=== PATIENT | male | born 1985 | race Caucasian/White ===

== ENCOUNTER 2018-10-04 14:50 | Emergency (ER) | payer OTHER ==
[~2018-10-04] VITALS: Ht 180.3 cm; Wt 77.3 kg
[~2018-10-04 14:50] MED LIST: HYDR-762 PO; TRAM50TA2 PO
[2018-10-04 14:55] VITALS: Ht 180.3 cm; Wt 77.3 kg
[2018-10-04] MEDS ORDERED: FENTAnyl 50 MCG/ML VIAL IV ONE ×4 (16:00→20:00)
[2018-10-04] MEDS ORDERED: MIDAZOLAM 1 MG/ML 2 ML INJ ONE (18:46)
[2018-10-04] MEDS ORDERED: LIDOCAINE 1% (MPF) 5 ML VIAL ONE (18:48)
[2018-10-04] MEDS ORDERED: LIDOCAINE 1% (MDV) 20 ML INJ ONE (18:54)
[2018-10-04] MEDS ORDERED: MIDAZOLAM 1 MG/ML 2 ML INJ IV ONE ×2 (19:00→20:00)
[2018-10-04] MEDS ORDERED: KETOROLAC 30 MG INJ IV STA (19:34)
[2018-10-04] MEDS ORDERED: HYDROCODONE/APAP (5/325) TAB PO ONE (20:00)
[2018-10-04 22:52] VITALS: BP 120/81; PULSE 60; RESP 21
[2018-10-04] MEDS ORDERED: SOD CHLORIDE 0.9% 0 ML ONE (23:47)
[2018-10-04] MEDS ORDERED: IOHEXOL 300MG/ML 150 ML BTL ONE (23:47)
== END 2018-10-04 22:52 | disposition home or self-care (01) ==
LOC: E/R 14:50
DX: J93.83 Other pneumothorax (principal)
CPT/HCPCS: 32551; 71045; 71250; 75989; 80048; 84484; 85025; 93005; 96374; C1729; J1885; J2250; J3010; Z7502; Z7610; Q9967

== ENCOUNTER 2018-10-04 23:25 | Inpatient (IN) | payer OTHER ==
[~2018-10-04] VITALS: Ht 180.3 cm; Wt 67.0 kg
[2018-10-04] MEDS ORDERED: morphine 4 MG/ML VIAL IV STA (23:43)
[2018-10-04] MEDS ORDERED: SOD CHLORIDE 0.9% 100 ML ONE (23:50)
[2018-10-04] MEDS ORDERED: IOHEXOL 300MG/ML 150 ML BTL ONE (23:50)
[2018-10-05] VITALS (39 sets, daily range): BP systolic 104–130; BP diastolic 45–103; PULSE 43–60; RESP 10–21; Ht 180.3 cm; Wt 67.0 kg
[2018-10-05] MEDS ORDERED: KETAMINE (50 MG/ML) 10 ML VIAL IV STA (00:23)
[2018-10-05] MEDS ORDERED: ONDANSETRON 4 MG INJ IV STA (00:23)
[2018-10-05] MEDS ORDERED: LIDOCAINE 1%/EPI (MDV) 50 ML INJ INJ ONE (00:30)
[2018-10-05] MEDS ORDERED: ONDANSETRON 4 MG INJ IV PRN (01:00)
[2018-10-05] MEDS ORDERED: LIDOCAINE 1%/EPI 30 ML INJ INJ ONE (01:00)
[2018-10-05] MEDS ORDERED: ONDANSETRON 4 MG INJ IV ONE (01:51)
[2018-10-05] MEDS: ACETAMINOPHEN 325 MG TAB PO PRN ×2 (03:35→10:43)
[2018-10-05] MEDS: morphine 2 MG INJ IV PRN ×3 (04:59→13:16)
[2018-10-05] MEDS: METOCLOPRAMIDE 10 MG INJ IV PRN ×2 (04:59→13:17)
[2018-10-05] MEDS ORDERED: KETOROLAC 30 MG INJ IV STA (09:42)
[2018-10-05] MEDS ORDERED: ACETAMINOPHEN 325 MG TAB PO PRN (11:00)
[2018-10-05] MEDS ORDERED: HYDROmorphONE 1 MG/ML SYG IV PRN (14:00)
[2018-10-05] MEDS: METOCLOPRAMIDE 10 MG INJ IV SCH ×2 (17:10→23:00)
[2018-10-05] MEDS: KETOROLAC 30 MG INJ IV SCH ×3 (17:10→21:59)
[2018-10-05] MEDS: ONDANSETRON 4 MG INJ IV PRN (20:06)
[2018-10-05] MEDS: HYDROmorphONE 1 MG/ML SYG IV PRN (20:13)
[2018-10-06] VITALS (24 sets, daily range): BP systolic 95–127; BP diastolic 59–87; PULSE 41–64; RESP 10–20
[2018-10-06] MEDS: ONDANSETRON 4 MG INJ IV PRN ×3 (01:31→20:23)
[2018-10-06] MEDS: HYDROmorphONE 1 MG/ML SYG IV PRN ×5 (01:32→23:34)
[2018-10-06] MEDS: KETOROLAC 30 MG INJ IV SCH ×5 (02:04→20:24)
[2018-10-06] MEDS: METOCLOPRAMIDE 10 MG INJ IV SCH ×5 (05:00→23:33)
[2018-10-06] MEDS: NICOTINE (14 MG/24 HR) PATCH TRANSDERM SCH (08:44)
[2018-10-07] VITALS (22 sets, daily range): BP systolic 92–125; BP diastolic 63–95; PULSE 44–66; RESP 10–21
[2018-10-07] MEDS: ONDANSETRON 4 MG INJ IV PRN ×3 (03:45→20:11)
[2018-10-07] MEDS: KETOROLAC 30 MG INJ IV SCH ×2 (03:45→08:37)
[2018-10-07] MEDS: HYDROmorphONE 1 MG/ML SYG IV PRN ×5 (05:28→23:16)
[2018-10-07] MEDS: METOCLOPRAMIDE 10 MG INJ IV SCH ×4 (05:28→23:16)
[2018-10-07] MEDS: NICOTINE (14 MG/24 HR) PATCH TRANSDERM SCH (08:39)
[2018-10-08] VITALS (24 sets, daily range): BP systolic 97–138; BP diastolic 49–107; PULSE 44–86; RESP 9–22
[2018-10-08] MEDS: ONDANSETRON 4 MG INJ IV PRN ×5 (02:50→20:02)
[2018-10-08] MEDS: HYDROmorphONE 1 MG/ML SYG IV PRN ×5 (02:51→20:02)
[2018-10-08] MEDS: NICOTINE (14 MG/24 HR) PATCH TRANSDERM SCH (08:32)
[2018-10-09] VITALS: BP 114/74; PULSE 75; RESP 18
[2018-10-09] MEDS: ONDANSETRON 4 MG INJ IV PRN ×5 (00:17→23:33)
[2018-10-09] MEDS: HYDROmorphONE 1 MG/ML SYG IV PRN ×5 (00:18→23:38)
[2018-10-09 04:17] VITALS: BP 116/77; PULSE 79; RESP 18
[2018-10-09] MEDS ORDERED: HYDROmorphONE 0.5 MG/0.5 ML SYG IV ONE (06:58)
[2018-10-09 08:03] VITALS: BP 111/72; PULSE 71; RESP 20
[2018-10-09] MEDS: NICOTINE (14 MG/24 HR) PATCH TRANSDERM SCH (09:00)
[2018-10-09 11:20] VITALS: BP 120/65; PULSE 52; RESP 20
[2018-10-09 15:42] VITALS: BP 114/71; PULSE 66; RESP 20
[2018-10-09 19:51] VITALS: BP 112/72; PULSE 54; RESP 18
[2018-10-10] MEDS ORDERED: MAGNESIUM HYDROXIDE 30ML CUP PO PRN (00:30)
[2018-10-10] MEDS: ONDANSETRON 4 MG INJ IV PRN ×2 (04:11→08:54)
[2018-10-10] MEDS: HYDROmorphONE 1 MG/ML SYG IV PRN ×3 (04:11→12:37)
[2018-10-10 04:13] VITALS: BP 115/75; PULSE 59; RESP 18
[2018-10-10 07:29] VITALS: BP 121/72; PULSE 59; RESP 20
[2018-10-10] MEDS: NICOTINE (14 MG/24 HR) PATCH TRANSDERM SCH (08:46)
[2018-10-10] MEDS ORDERED: SENNA TAB PO SCH (09:00)
[2018-10-10 11:17] VITALS: BP 121/69; PULSE 57; RESP 20
[2018-10-10 15:08] VITALS: BP 127/75; PULSE 71; RESP 20
[2018-10-10] MEDS ORDERED: NA PHOSPHATE/BIPHOS 133 ML ENEMA PR ONE (17:00)
== END 2018-10-10 18:33 | disposition home or self-care (01) | DRG 187 ==
LOC: E/R 23:25 → ICU 10-05 00:43 → EDBEDREQ 10-05 01:19 → EDBEDREQSVC 10-05 01:19 → EDBEDREQTM 10-05 01:19 → UNDOADMIN 10-05 03:08 → ICU 10-05 03:08 → TEL 10-08 23:42
PROVIDERS: ADMIT Family Medicine; ATTEND Internal Medicine
PROC: 0W9B30Z Drainage of Left Pleural Cavity with Drainage Device, Percutaneous Approach (ICD-10-PCS; principal; 2018-10-05)
DX: J94.2 Hemothorax (principal); J93.9 Pneumothorax, unspecified; F12.90 Cannabis use, unspecified, uncomplicated; F17.200 Nicotine dependence, unspecified, uncomplicated; F19.10 Other psychoactive substance abuse, uncomplicated
CPT/HCPCS: 71045; 71250; 71260; 80048; 80053; 82103; 83036; 83735; 84100; 84443; 85025; 86850; 86900; 86901; 87081; 94770; 96374; 97161; J1170; J1885; J2270; J2405; J2765; Q9967